=== PATIENT | male | born 1995 | race Caucasian/White ===

== ENCOUNTER 2018-08-04 05:32 | Emergency (ER) | payer MEDICAID ==
[~2018-08-04] VITALS: Ht 182.9 cm; Wt 72.6 kg
--- NOTE | 2018-08-04 05:35 | NUR ---
PATIENT NOT IN THE WAITNG ROOM.
[2018-08-04 06:23] VITALS: BP 134/87
--- NOTE | 2018-08-04 07:09 | NUR ---
REPORT GIVEN TO UMBERTO CONNOLLY FOR CORBY
[2018-08-04] MEDS ORDERED: LIDOCAINE HCL/MPF 1% 30 ML VIAL IJ ONE (07:16)
[2018-08-04] MEDS ORDERED: LIDOCAINE 1%-EPI 1:100,000 20 ML VIAL TP ONE (07:30)
--- NOTE | 2018-08-04 07:41 | NUR ---
VERBAL ORDER: CHANGE LIDOCAINE WITH EPI TO WITHOUT EPI PER DR CAGLE
== END 2018-08-04 07:43 | disposition home or self-care (01) ==
LOC: EDBD → ER 05:37
DX: S50.852A Superficial foreign body of left forearm, initial encounter (principal); Z59.0 Homelessness; W45.8XXA Other foreign body or object entering through skin, initial encounter; Y93.89 Activity, other specified; Y92.89 Other specified places as the place of occurrence of the external cause; Y99.8 Other external cause status
CPT/HCPCS: 73090-TC; A6402; J3490

== ENCOUNTER 2018-09-06 12:23 | Emergency (ER) | payer MEDICAID ==
[~2018-09-06] VITALS: Ht 182.9 cm; Wt 70.3 kg
--- NOTE | 2018-09-06 12:23 | NUR ---
BIB SELF, TOOK HEROIN AND METH, TO ER BED 14, HOOKED TO MONITOR, AWAITING MD LEIVA
--- NOTE | 2018-09-06 12:43 | NUR ---
DR AKINS AT BEDSIDE
--- NOTE | 2018-09-06 13:35 | NUR ---
PROVIDED W LUNCH TRAY, PT TOLERATING PO WELL
--- NOTE | 2018-09-06 13:35 | NUR ---
URINE SAMPLE SENT TO LAB
[2018-09-06 13:39] LABS: APPEARANCE,URINE Clear (CLEAR); BILIRUBIN,URINE Negative (NEGATIVE); BLOOD, URINE Negative Ery/uL (NEGATIVE); COLOR,URINE Yellow (YELLOW); KETONES,URINE Trace (NEGATIVE); LEUKOCYTE ESTERASE ,URINE Trace (NEGATIVE); NITRITE, URINE Negative (NEGATIVE); PH,URINE 6.5 (5.0-8.0); PROTEIN,URINE Negative (NEGATIVE); UGLUCOSE Negative (NEGATIVE)
[2018-09-06 13:42] LABS: BASOPHILS % (AUTO) 0.4 % (0.0-2.0); HEMATOCRIT 39 % (39-51); HEMOGLOBIN 13.4 g/dL (13.5-17.5); LYMPHOCYTES # (AUTO) 2.3 /CMM (0.8-4.8); MEAN CORPUSCULAR HGB CONC 34 g/dl (31.0-36.0); MEAN CORPUSCULAR VOLUME 92 fL (80-96); MONOCYTES # (AUTO) 1.2 /CMM (0.1-1.30); MONOCYTES % (AUTO) 13.5 % (2.0-12.0); NEUTROPHILS % (AUTO) 58.1 % (43.0-81.0); PLATELET COUNT (AUTO) 238 /CMM (150-450); RED BLOOD CELL COUNT(AUTO) 4.23 MIL/uL (4.5-6.0); WHITE BLOOD COUNT (AUTO) 8.7 K/uL (4.3-11.0)
[2018-09-06 13:46] LABS: RBC,URINE NONE SEEN /HPF (0-2)
[2018-09-06 13:47] LABS: BACTERIA,URINE Few /HPF (None Seen); SQUAMOUS EPITHELIAL CELL,UR Few /HPF (None Seen)
[2018-09-06 13:50] LABS: CALCIUM, SERUM 9.1 mg/dL (8.5-10.1); CARBON DIOXIDE 29 mmol/L (21-32); CHLORIDE 101 mmol/L (98-107); CREATININE 0.8 mg/dL (0.6-1.3); GLUCOSE 97 mg/dL (74-106); POTASSIUM 4.2 mmol/L (3.5-5.1); SODIUM SERUM 138 mmol/L (136-145); UREA NITROGEN, BLOOD 17 mg/dL (7-18)
[2018-09-06 13:56] LABS: ALANINE AMINOTRANSFERASE 25 U/L (12-78); ALCOHOL, BLOOD < 3 mg/dL (0-0); ALKALINE PHOSPHATASE 107 U/L (46-116); ASPARTATE AMINOTRANSFERASE 20 U/L (15-37); BILIRUBIN,DIRECT 0.1 mg/dL (0.0-0.2); BILIRUBIN,TOTAL 0.6 mg/dL (0.2-1.0); TOTAL PROTEIN, SERUM 7.8 g/dL (6.4-8.2)
[2018-09-06 13:58] LABS: ACETAMINOPHEN < 2 ug/ml (10-30)
--- NOTE | 2018-09-06 15:03 | NUR ---
PT IN BED COMFORTABLY ASLEEP, NAD, VSS, WILL CONTINUE TO MONITOR
--- NOTE | 2018-09-06 16:35 | NUR ---
PT IN V=BED ASLEEP, VSS. WILL CONTINUE TO MONITOR
--- NOTE | 2018-09-06 18:58 | NUR ---
PT IN BED ASLEEP, VSS, WILL CONTIUE TO MONITOR
--- NOTE | 2018-09-06 21:04 | NUR ---
PT ASLEEP IN BED, HOOKED TO MONITOR, VS STABLE, EASILY AROUSABLE BY VOICE. WILL CONTINUE TO MONITOR
--- NOTE | 2018-09-06 22:07 | NUR ---
PT ASLEEP IN BED, EASILY AROUSABLE BY VOICE, HOOKED TO MONITOR, VSS
--- NOTE | 2018-09-06 23:37 | NUR ---
REPORT GIVEN TO ALOK SHIPMAN FOR CORBY
--- NOTE | 2018-09-07 02:32 | NUR ---
dr. france d/c patient, per md unable to print aci, pt verbalizes and understands d/c instruction, signed instructions in chart, given prescription by md. left in stable condtion, amb with steady gait.
[2018-09-07 02:33] VITALS: BP 131/60
== END 2018-09-07 02:35 | disposition home or self-care (01) ==
LOC: EDBD → ER 12:27
DX: F19.10 Other psychoactive substance abuse, uncomplicated (principal); F15.10 Other stimulant abuse, uncomplicated; Z59.0 Homelessness
CPT/HCPCS: 36415; 80048; 80076; 80305; 80307; 80329; 81001; 85025; 99283; A4606; G0480; 81000-TC

== ENCOUNTER 2018-09-15 20:44 | Inpatient (IN) | payer MEDICAID ==
[~2018-09-15] VITALS: Ht 182.9 cm; Wt 68.2 kg
[2018-09-15 00:50] VITALS: BP 134/66
--- NOTE | 2018-09-15 21:07 | NUR ---
ABSCESS ON BOTH ARMS S/P USING HEROIN X TODAY. ALSO ABSCESS ON RIGHT CALF. C/O PAIN LEVEL 10/10. SKIN INTACT AND NO ACUTE DISTRESS NOTED. HOOKED TO MONITOR. READY FOR EVAL.
--- NOTE | 2018-09-15 21:10 | NUR ---
PT IS HOMELESS. IF NOT ADMITTED, WILL PROVIDE RESOURCES AND HAVE PT SIGN WAIVER.
[2018-09-15] MEDS ORDERED: LIDOCAINE 1%-EPI 1:100,000 20 ML VIAL ONE (21:13)
[2018-09-15] MEDS ORDERED: TDAP [DIPH/PERTUSSIS/TET] 0.5 ML VIAL IM ONE ×2 (21:14→21:30)
[2018-09-15] MEDS ORDERED: ACETAMINOPHEN ES 500 MG TABLET ONE (21:14)
[2018-09-15] MEDS ORDERED: LEVOFLOXACIN 750 MG /D5W 150ML 150 ML IV ONE (21:26)
[2018-09-15] MEDS ORDERED: VANCOMYCIN 1 GM VIAL ONE (21:26)
[2018-09-15] MEDS ORDERED: ACETAMINOPHEN 325 MG TABLET PO ONE (21:30)
[2018-09-15] MEDS ORDERED: VANCOMYCIN 1 GM in IV D5W 250 ML IV ONE (21:30)
[2018-09-15] MEDS ORDERED: IV NS 0.9% 1,000 ML BAG IV ONE (21:30)
[2018-09-15] MEDS ORDERED: LEVOFLOXACIN 750 MG /D5W 150ML PIGGYBACK IV ONE (21:30)
[2018-09-15 21:31] LABS: BASOPHILS # (AUTO) 0.1 /CMM (0.0-0.2); BASOPHILS % (AUTO) 0.5 % (0.0-2.0); EOSINOPHILS % (AUTO) 0.6 % (0.0-6.0); HEMATOCRIT 34 % (39-51); HEMOGLOBIN 11.5 g/dL (13.5-17.5); LYMPHOCYTES # (AUTO) 2.2 /CMM (0.8-4.8); LYMPHOCYTES % (AUTO) 17.2 % (20.0-44.0); MEAN CORPUSCULAR HGB CONC 34 g/dl (31.0-36.0); MEAN CORPUSCULAR VOLUME 91 fL (80-96); MONOCYTES # (AUTO) 1.1 /CMM (0.1-1.30); MONOCYTES % (AUTO) 8.3 % (2.0-12.0); NEUTROPHILS # (AUTO) 9.5 /CMM (1.8-8.9); NEUTROPHILS % (AUTO) 73.4 % (43.0-81.0); PLATELET COUNT (AUTO) 337 /CMM (150-450); RED BLOOD CELL COUNT(AUTO) 3.71 MIL/uL (4.5-6.0); WHITE BLOOD COUNT (AUTO) 12.9 K/uL (4.3-11.0)
[2018-09-15 21:42] LABS: CALCIUM, SERUM 8.9 mg/dL (8.5-10.1); CREATININE 0.8 mg/dL (0.6-1.3); POTASSIUM 3.9 mmol/L (3.5-5.1)
[2018-09-15 21:48] LABS: ALBUMIN 3.1 g/dL (3.4-5.0); BILIRUBIN,DIRECT 0.1 mg/dL (0.0-0.2); BILIRUBIN,TOTAL 0.5 mg/dL (0.2-1.0); TOTAL PROTEIN, SERUM 6.9 g/dL (6.4-8.2)
--- NOTE | 2018-09-15 22:02 | NUR ---
IV ACCESS ESTABLISHED AND FLUIDS INFUSING. PT TOLERATING WELL. WILL CONT TO MONITOR
--- NOTE | 2018-09-15 23:37 | NUR ---
PT SLEEPING COMFORTABLY IN BED. EASILY AROUSES. VSS. WILL CONT TO MONITOR. Addendum: 09/15/18 at 2351 by CJUWONO AROUSES, BUT IMMEDIATELY FALLS BACK ASLEEP
--- NOTE | 2018-09-16 00:21 | NUR ---
calling report to [facility] UMBERTO. Pt is going to [phone].
--- NOTE | 2018-09-16 00:35 | NUR ---
REPORT GIVEN TO UMBERTO BURK - [facility]
[2018-09-16 01:00] VITALS: BP 134/66
--- NOTE | 2018-09-16 01:00 | NUR ---
RECIEVED ROM THE ER ON A GUERNEY. ABLE TO WALK FROM THE GUERNY IN THE HALLWAY TO HIS BED WITH ONE NURSE ASSIST FOR SAFETY. ONE IN THE BED HE SHUT HIS EYES AND WOUND ONLY ANSWER CERTAIN QUESTIONS. HE WOULD MOVE HIS HEAD TO IIDICATE YES NO OR IGNORE THE QUESTION. PHOTOS TAKEN OF WOUND ON THE ARMS NECK LEGS
[2018-09-16] MEDS ORDERED: MAGNESIUM HYDROXIDE 30 ML UDC PO PRN (02:30)
[2018-09-16] MEDS ORDERED: Z GUARD REMEDY 2 OZ OINT TP PRN (02:30)
[2018-09-16] MEDS ORDERED: MAG HYDROX/AL HYDROX/SIMETH 30 ML UDC PO PRN (02:30)
[2018-09-16] MEDS ORDERED: ZOLPIDEM TARTRATE 5 MG TABLET PO PRN (02:30)
[2018-09-16] MEDS: IV NS 0.9% 1,000 ML IV PRN ×2 (03:45→19:11)
--- NOTE | 2018-09-16 05:38 | NUR ---
ENDING NOTES: ADMITTED LAST NIGHT, HE WAS SLEEPY AND SLEPT HEAVU BUT AROUSABLE UNTIL 0500. HE THEN PROCEDED TO GET OUT OF BED W/O CALLING NURSE FOR ASSIST, CALL LIGHT WAS WITHIN HIS REACH THE BED ALARMS WAS ON AND SOUNDED OFF!. ASSISTED HIM TO THE BATHROOM STEADY ON HIS LEGS. PLEASANT AND FRIENDLY AT THIS TIME, ASSISTED BACK TO BED. ARMS ARE RED AND SWOLLEN ELEVATED ON PILLOWS PHOTOS IN THE CHART. MULTIPLE SCABS ON THE LEGS AND ARMS AND RIGHT NECK. ATBS ARE ORDERED.
[2018-09-16] MEDS ORDERED: PIPERACILLIN /TAZOBACTAM 3.375 G in IV D5W 50 ML IV SCH (06:00)
[2018-09-16 06:19] LABS: BASOPHILS % (AUTO) 0.3 % (0.0-2.0); EOSINOPHILS % (AUTO) 0.6 % (0.0-6.0); HEMATOCRIT 38 % (39-51); HEMOGLOBIN 12.6 g/dL (13.5-17.5); LYMPHOCYTES # (AUTO) 1.6 /CMM (0.8-4.8); LYMPHOCYTES % (AUTO) 13.3 % (20.0-44.0); MEAN CORPUSCULAR HGB CONC 34 g/dl (31.0-36.0); MEAN CORPUSCULAR VOLUME 92 fL (80-96); MONOCYTES # (AUTO) 0.8 /CMM (0.1-1.30); MONOCYTES % (AUTO) 6.6 % (2.0-12.0); NEUTROPHILS # (AUTO) 9.7 /CMM (1.8-8.9); NEUTROPHILS % (AUTO) 79.2 % (43.0-81.0); PLATELET COUNT (AUTO) 317 /CMM (150-450); RED BLOOD CELL COUNT(AUTO) 4.07 MIL/uL (4.5-6.0); WHITE BLOOD COUNT (AUTO) 12.2 K/uL (4.3-11.0)
[2018-09-16 06:51] LABS: CALCIUM, SERUM 8.5 mg/dL (8.5-10.1); CREATININE 0.7 mg/dL (0.6-1.3); PHOSPHORUS 4.5 mg/dL (2.5-4.9); POTASSIUM 4.2 mmol/L (3.5-5.1)
--- NOTE | 2018-09-16 07:25 | NUR ---
MS/RN NOTE THE PATIENT ALERT AND ORIENTED X3. IN ROOM AIR AND DENIES SOB. RESPIRATION REGULAR AND UNLABORED. DENIES PAIN. THE PATIENT IN NO APPARENT DISTRESS. LEFT HAND G 22 PATENT AND SALINE LOCKED. BED LOW AND LOCKED. SIDE RAILS UP X3. CALL LIGHT WITHIN REACH. WILL CONTINUE TO MONITOR.
[2018-09-16 08:00] VITALS: BP 127/82
[2018-09-16] MEDS ORDERED: FEE PK DOSING 1 MIN EA MC ONE ×2 (08:21→08:28)
--- NOTE | 2018-09-16 09:45 | NUR ---
MS/RN NOTE STILL WAITING FOR PHARMACY TO DELIVER VANCOMYCIN 1.25 GM. FOLLOW UP CALL IS MADE.
[2018-09-16] MEDS: VANCOMYCIN 1.25 GM in IV D5W 500 ML IV SCH ×3 (10:03→23:21)
--- NOTE | 2018-09-16 10:09 | NUR ---
WOUND CARE CONSULT: PT PRESENTS WITH MULTIPLE AREAS OF REDNESS INCLUDING UPPER AND LOWER EXTREMITIES WITH RAISED RED AREA TO RT ARM AND REDNESS TO RT CALF WITH TENDERNESS, PRESENT ON ADMISSION. PT VERY DROWSY AND REFUSED TO TURN FOR FULL SKIN ASSESSMENT. DR CAGLE IN WITH PT AND HE REQUESTED SURGICAL CONSULT WITH WOUND SURGEON. EXAMINED PT. WILL SEE PRN. RODRIGUEZ IN AGREEMENT WITH PLAN OF CARE. Addendum: 09/16/18 at 1011 by CUONG ALLEN WNDNU Amended: Links added.
[2018-09-16] MEDS: METHOCARBAMOL (750MG) 750 MG TABLET PO SCH ×4 (10:42→20:57)
--- NOTE | 2018-09-16 11:08 | NUR ---
Social service consult requested by TAMERA Ramírez for homelessness and heroin use. Pt. is a 23 year old male who was admitted to [facility] for abscess. YO met with pt. bedside. Pt. is alert and oriented x 4. Initially pt had his eyes closed and was crying. Pt. had a sad affect. SW offered emotional support and asked pt. to talk about what was upsetting him. Pt. then opened his eyes and informed SW that he is in big trouble. Pt. states he is court mandated to attend a drug treatment program and was attending [facility] in [place] for three weeks but was kicked out two weeks ago. Pt. stated, his sister had given him an edible marijuana candy three weeks ago and the staff at [facility] found it in his backpack. Pt. has been on the streets since then and started using again. Pt. sounds defeated and states, " I don't know what I am going to do now, my court date is in the beginning of October." YO informed pt. she will refer him to [facility] and will let him know if they will be able to accommodate him there. Pt's drug of choice is heroin and methamphetamines. Pt. uses a gram of each daily. Pt. appears a bit distraught stating, " I have no family, I am going to go to care home." Pt. states, his backpack in at the [facility] in [place] and he needs to get it. YO faxed referral packet to Thania Jasso at [facility] . YO also called Thania [phone] and left her a voicemail message informing her that YO faxed referral packet.
--- NOTE | 2018-09-16 15:03 | NUR ---
YO left a voicemail message for Italia Claros at [facility] [phone] regarding referral that was faxed this morning.
[2018-09-16 16:00] VITALS: BP 128/78
[2018-09-16] MEDS: LORAZEPAM INJ 2 MG/ML VIAL IV PRN (18:01)
--- NOTE | 2018-09-16 18:50 | NUR ---
MS/RN NOTE THE PATIENT ALERT AND ORIENTED X4. IN ROOM AIR AND SATURATION IS AT 98%. DENIES SOB. RESPIRATION REGULAR AND UNLABORED. DENIES PAIN. THE PATIENT IN NO APPARENT DISTRESS. LEFT HAND G 22 PATENT AND IV FLUID INFUSING PER ORDER. NO S/S INFILTRATION NOTED. BED LOW AND LOCKED. SIDE RAILS UP X3. CALL LIGHT WITHIN REACH. WILL ENDORSE TO PANEL BEATER.
--- NOTE | 2018-09-16 19:00 | NUR ---
MS/RN NOTE RECEIVED PT IN BED SLEEPING BUT EASILY AWOKEN VERBALLY OR BY TOUCH. PT A/O X4. RESPIRATIONS EVEN AND UNLABORED WITH NO S/S OF ACUTE DISTRESS OR SOB. PT DENIES PAIN AT THIS TIME. LEFT HAND G 22 PATENT AND INTACT. NO S/S INFILTRATION NOTED. BED IN LOW AND LOCKED POSITION WITH SIDE RAILS UP X3. CALL LIGHT WITHIN REACH. WILL CONTINUE TO MONITOR.
[2018-09-16 20:11] VITALS: BP 134/74
[2018-09-16] MEDS: LEVOFLOXACIN 750 MG /D5W 150ML 750 MG in PREMIX 1 EA IV SCH (20:34)
[2018-09-16] MEDS: ACETAMINOPHEN 325 MG TABLET PO PRN (20:34)
[2018-09-16] MEDS ORDERED: LEVOFLOXACIN 750 MG /D5W 150ML 750 MG in PREMIX 1 EA IV SCH (21:30)
[2018-09-16 23:09] VITALS: BP 169/88
[2018-09-16] MEDS ORDERED: SILVER NITRATE APPLICATOR 1 EA BOX TP ONE (23:30)
[2018-09-16] MEDS ORDERED: LIDOCAINE 1%-EPI 1:100,000 20 ML VIAL TP ONE (23:30)
[2018-09-17] MEDS: METHOCARBAMOL (750MG) 750 MG TABLET PO SCH ×6 (02:10→22:58)
[2018-09-17 07:05] LABS: CALCIUM, SERUM 8.9 mg/dL (8.5-10.1); CREATININE 0.7 mg/dL (0.6-1.3); POTASSIUM 4.3 mmol/L (3.5-5.1)
--- NOTE | 2018-09-17 07:20 | NUR ---
RN OPENING NOTES PATIENT IN STABLE CONDITION. A/OX3, ABLE TO MAKE NEEDS KNOWN, NOT IN ANY FORM OF DISTRESS, NO SOB, COMPLAINTS OF PAIN 7/10 ON UPPER EXTREMITIES, WILL GIVE PAIN MEDS ORDERED. IV ACCESS INTACT AND PATENT. KEPT PATIENT SAFE AND COMFORTABLE. BED IN LOW/LOCKED POSITION, SIDERAILS UPX2, CALL LIGHT IN REACH. WILL CONTINUE TO MONITOR ACCORDINGLY.
[2018-09-17] MEDS: HYDROCODONE/APAP 5/325MG 1 EACH TABLET PO PRN ×2 (07:32→15:22)
--- NOTE | 2018-09-17 07:45 | NUR ---
MS/RN NOTE PT IN BED SLEEPING BUT EASILY AWOKEN VERBALLY OR BY TOUCH. PT A/O X4 AND ABLE TO MAKE NEEDS KNOWN. RESPIRATIONS EVEN AND UNLABORED WITH NO S/S OF ACUTE DISTRESS OR SOB THROUGHOUT SHIFT. LEFT HAND G 22 PATENT AND INTACT RUNNING NS@100ML/HR. NO S/S INFILTRATION NOTED. BED IN LOW AND LOCKED POSITION WITH SIDE RAILS UP X3. CALL LIGHT WITHIN REACH. WILL ENDORSE TO ONCOMING NURSE FOR CONTINUATION OF CARE.
[2018-09-17 08:00] VITALS: BP_SYST 125; BP_SYST 161; BP_DIAS 54; BP_DIAS 88
--- NOTE | 2018-09-17 08:44 | NUR ---
YO called Italia Claros at [facility] [phone] to follow up on referral that was faxed to her yesterday. Italia informed YO that they did receive the packet and will review it and call YO this afternoon.
[2018-09-17] MEDS: VANCOMYCIN 1.25 GM in IV D5W 500 ML IV SCH ×2 (08:52→16:31)
[2018-09-17] MEDS ORDERED: HYDR-4384 PO (09:12)
[2018-09-17] MEDS ORDERED: METH10TA2 PO (09:12)
--- NOTE | 2018-09-17 10:45 | NUR ---
YO received a call from pt's mother Lilly . Lilly informed YO that she resides in [place] and will be coming to [place] to see the pt. tomorrow. Lilly stated she would like to help the pt. and not have him back on the streets. YO informed Lilly she referred pt. to [facility] and is awaiting a call back this afternoon. YO also informed Lilly about [facility] that accepts pt. with and without insurance and there tends to be no waitlist. YO informed Lilly she will give pt. the Substance Abuse Hotline number so pt. can call himself regarding a program. YO to refer pt. to [facility] as well. YO updated RASHARD Black regarding pt's mother flying in from [place] to assist the pt.
[2018-09-17] MEDS: ACETAMINOPHEN 325 MG TABLET PO PRN (10:52)
--- NOTE | 2018-09-17 10:54 | NUR ---
YO contacted the [facility] in [place]. [place] [phone] and was informed by Jess in intake that they have no bed availability at this time.
[2018-09-17] MEDS: LORAZEPAM INJ 2 MG/ML VIAL IV PRN ×2 (11:36→19:43)
[2018-09-17] MEDS: ONDANSETRON HCL/PF 4 MG/2 ML VIAL IVP PRN ×2 (13:20→21:39)
--- NOTE | 2018-09-17 14:00 | NUR ---
RN NOTES: VENEERS PATIENT REPORTED THAT HE LOST HIS UPPER VENEERS WHILE VOMITING EARLIER. LIZANDRO LOREDO AND PRIMARY NURSE WENT THROUGH THE TRASH BIN AND LOOKED FOR IT. FOUND THE VENEERS AT THE GREEN VOMIT CONTAINER AND WASHED IT, AND GAVE IT TO THE PATIENT. DENTURE CONTAINER PROVIDED AND PLACED THE VENEER INSIDE WITH PATIENT'S NAME LABEL, PLACED IT ON BEDSIDE TRAY. ADDED/NOTED IT ON THE BELONGINGS CHECKLIST.
--- NOTE | 2018-09-17 15:44 | NUR ---
YO met with pt .bedside. Pt. is having projectile vomiting and is not feeling well at all. Per UMBERTO Campbell pt. was given Ativan and Zofran per doctor's orders. SW informed pt. that she did call [facility] and they are reviewing his referral packet. Pt. was crying and SW offered pt. emotional support and informed him that hi hanyther is coming to visit him tomorrow from [place]. YO informed pt's UMBERTO Campbell and RASHARD Black regarding pt's going through withdrawals and is feeling miserable. They will contact Dr. Curtis and follow up with him.
--- NOTE | 2018-09-17 15:58 | NUR ---
SW contacted [facility] and left a voicemail message requesting a call back. -
[2018-09-17 16:00] VITALS: BP 145/70
[2018-09-17] MEDS ORDERED: CLONIDINE HCL 0.1 MG TABLET PO PRN (16:00)
[2018-09-17] MEDS ORDERED: METOCLOPRAMIDE HCL 10 MG/2 ML VIAL IV PRN (16:00)
[2018-09-17] MEDS: LACTOBACILLUS RHAMNOSUS GG 1 EACH CAP.SPRINK PO SCH (18:09)
--- NOTE | 2018-09-17 19:05 | NUR ---
MS/RN NOTE PT IN BED AWAKE AND RESTING. PT A/O X4 AND ABLE TO MAKE NEEDS KNOWN. RESPIRATIONS EVEN AND UNLABORED WITH NO S/S OF ACUTE DISTRESS OR SOB NOTED. LEFT HAND G 22 PATENT AND INTACT RUNNING NS@100ML/HR. NO S/S INFILTRATION NOTED. BED IN LOW AND LOCKED POSITION WITH SIDE RAILS UP X2. CALL LIGHT WITHIN REACH. WILL CONTINUE TO MONITOR.
--- NOTE | 2018-09-17 19:36 | NUR ---
RN CLOSING NOTES PATIENT IN STABLE CONDITION. ALL NEEDS ATTENDED AND PROVIDED. ALL DUE MEDICATIONS ADMINISTERED ORDERED. KEPT PATIENT SAFE AND COMFORTABLE. BED IN LOW/LOCKED POSITON, SIDERAIL UP X 2, CALL LIGHT IN REACH. ENDORSED TO NIGHT RN FOR CORBY.
[2018-09-17 20:00] VITALS: BP 142/63
[2018-09-17] MEDS: LEVOFLOXACIN 750 MG /D5W 150ML 750 MG in PREMIX 1 EA IV SCH (21:10)
[2018-09-17] MEDS: IV NS 0.9% 1,000 ML IV PRN (21:14)
[2018-09-18] MEDS: VANCOMYCIN 1.25 GM in IV D5W 500 ML IV SCH ×2 (00:20→08:07)
[2018-09-18] MEDS: METHOCARBAMOL (750MG) 750 MG TABLET PO SCH ×3 (02:55→09:20)
[2018-09-18 08:00] VITALS: BP 124/70
[2018-09-18] MEDS: LORAZEPAM INJ 2 MG/ML VIAL IV PRN (08:08)
[2018-09-18] MEDS: LACTOBACILLUS RHAMNOSUS GG 1 EACH CAP.SPRINK PO SCH (08:10)
[2018-09-18] MEDS: ACETAMINOPHEN 325 MG TABLET PO PRN (08:10)
[2018-09-18 08:15] LABS: CALCIUM, SERUM 8.9 mg/dL (8.5-10.1); CREATININE 0.8 mg/dL (0.6-1.3); POTASSIUM 3.8 mmol/L (3.5-5.1)
--- NOTE | 2018-09-18 09:45 | NUR ---
RN NOTES PATIENT WAS PACING AROUND AND STARTED TO PUT ON HIS CLOTHES AND STATED THAT HE WANTS TO LEAVE THE HOSPITAL. TALKED TO PATIENT IN A CALM MANNER AND EXPLAINED TO PATIENT RISK OF LEAVING AGAINST MEDICAL ADVICES. PATIENT VERBALIZED UNDERSTANDING. REMOVED IV ACCESS, APPLIED PRESSURE, NO BLEEDING NO COMPLICATIONS. REMOVED NAME BAND.
--- NOTE | 2018-09-18 09:50 | NUR ---
RN NOTES PER PATIENT, "OK IM GONNA STAY". WENT BACK TO BED AND RESTED.
--- NOTE | 2018-09-18 10:00 | NUR ---
DR LOMAX AT BEDSIDE DOING INCISION AND DRAINAGE ON RIGHT ARM.
--- NOTE | 2018-09-18 10:30 | NUR ---
WOUND CULTURE SPECIMEN COLLECTED AND CALLED LAB FOR BOTTLE BOOTH ATTENDANT
[2018-09-18 10:34] VITALS: BP 161/80
[2018-09-18] MEDS: HYDROCODONE/APAP 5/325MG 1 EACH TABLET PO PRN (10:35)
--- NOTE | 2018-09-18 10:55 | NUR ---
RN NOTES PATIENT WANTED TO GO FOR A FRESH AIR OUTSIDE THE HOSPITAL. PATIENT IS GETTING HOSTILE/CURSING. AGRICULTURAL EXTENSION OFFICER MADE AWARE. LIZANDRO GUTIERREZ AND MILAN ACCOMPANIED PATIENT TO GET FRESH AIR OUTSIDE THE HOSPITAL.
--- NOTE | 2018-09-18 11:05 | NUR ---
RN NOTES LIZANDRO GUTIERREZ REPORTED THAT PATIENT WENT AWOL RIDING HIS SKATEBOARD. STOCKROOM SUPERVISOR AND TWISTING MACHINE OPERATOR MADE AWARE. WILL NOTIFY MD. PATIENT BELONGINGS STILL IN THE ROOM. LIZANDRO CORDERO PUT ALL THE BELONGINGS ON PATIENT'S BELONGINGS BAG AND LEFT IT IN THE NURSING STATION..
--- NOTE | 2018-09-18 13:44 | NUR ---
SW was informed by RASHARD Black and pt's UMBERTO Campbell that pt. eloped from the facility. YO contacted pt's mother Lilly (who travelled from [place] to [place] to come visit the pt) that pt. eloped from the facility this morning. SW informed her that pt. left all his belongings here at the hospital. Lilly informed SW that she is in an uber from [facility] and will be coming to [facility] to pick up and delivery driver pt's belongings. YO notified biomedical repair technician Diane regarding pt's mother coming to the hospital in a few hours to pick up and delivery driver belongings.
--- NOTE | 2018-09-18 14:30 | NUR ---
RN NOTES PATIENT MOTHER CAME AND PICKED UP THE BELONGINGS, FORM SIGNED.
== END 2018-09-18 11:10 | disposition left against medical advice (07) | DRG 364 ==
LOC: EDBD → ER 20:44 → MED 09-16 00:21
PROVIDERS: ADMIT Internal Medicine; ATTEND Internal Medicine
PROC: 0KB90ZZ Excision of Right Lower Arm and Wrist Muscle, Open Approach (ICD-10-PCS; principal; 2018-09-18)
DX: L02.413 Cutaneous abscess of right upper limb (principal); G92 Toxic encephalopathy; Q61.3 Polycystic kidney, unspecified; Z88.0 Allergy status to penicillin; F11.229 Opioid dependence with intoxication, unspecified; F17.210 Nicotine dependence, cigarettes, uncomplicated; Z59.0 Homelessness; L03.114 Cellulitis of left upper limb; L03.113 Cellulitis of right upper limb
CPT/HCPCS: 36415; 80048-TC; 80061-TC; 80076-TC; 80202-TC; 83605-TC; 83735-TC; 84100-TC; 85025-TC; 85730-TC; 87040-TC; 87070-TC; 87081-TC; 90715; A4216; A6402; A6403; A6407; G0378; G0480; J1956; J2060; J2405; J2543; J3370; J3490; J7030; J7060

== ENCOUNTER 2018-09-20 21:41 | Inpatient (IN) | payer MEDICAID ==
[~2018-09-20] VITALS: Ht 182.9 cm; Wt 66.2 kg
[~2018-09-20 21:41] MED LIST: HYDR-4384 PO; METH10TA2 PO
[2018-09-20] MEDS ORDERED: SULFAMETH/TRIMETH 800/160 MG 1 UDTAB TABLET PO ONE ×2 (23:00→23:14)
[2018-09-20] MEDS ORDERED: LIDOCAINE 1%-EPI 1:100,000 20 ML VIAL TP ONE (23:00)
[2018-09-20] MEDS ORDERED: CEPHALEXIN MONOHYDRATE 500 MG CAPSULE PO ONE ×2 (23:00→23:13)
[2018-09-21] MEDS ORDERED: KETOROLAC TROMETHAMINE INJ 60 MG/2 ML VIAL IM ONE
[2018-09-21 00:05] LABS: BASOPHILS # (AUTO) 0.1 /CMM (0.0-0.2); BASOPHILS % (AUTO) 0.8 % (0.0-2.0); EOSINOPHILS % (AUTO) 0.7 % (0.0-6.0); HEMATOCRIT 42 % (39-51); HEMOGLOBIN 14.5 g/dL (13.5-17.5); LYMPHOCYTES # (AUTO) 1.9 /CMM (0.8-4.8); LYMPHOCYTES % (AUTO) 17.1 % (20.0-44.0); MEAN CORPUSCULAR HGB CONC 35 g/dl (31.0-36.0); MEAN CORPUSCULAR VOLUME 90 fL (80-96); MONOCYTES # (AUTO) 0.6 /CMM (0.1-1.30); MONOCYTES % (AUTO) 5.5 % (2.0-12.0); NEUTROPHILS # (AUTO) 8.3 /CMM (1.8-8.9); NEUTROPHILS % (AUTO) 75.9 % (43.0-81.0); PLATELET COUNT (AUTO) 418 /CMM (150-450); RED BLOOD CELL COUNT(AUTO) 4.68 MIL/uL (4.5-6.0); WHITE BLOOD COUNT (AUTO) 10.9 K/uL (4.3-11.0)
[2018-09-21 00:13] LABS: CALCIUM, SERUM 8.8 mg/dL (8.5-10.1); CREATININE 0.7 mg/dL (0.6-1.3)
[2018-09-21] MEDS ORDERED: KETOROLAC TROMETHAMINE INJ 30 MG/ML VIAL ONE (00:38)
[2018-09-21 02:20] VITALS: BP 154/74
[2018-09-21 02:25] VITALS: BP 154/74
[2018-09-21] MEDS ORDERED: ACETAMINOPHEN 325 MG TABLET PO PRN (03:00)
[2018-09-21] MEDS ORDERED: Z GUARD REMEDY 2 OZ OINT TP PRN (03:00)
[2018-09-21] MEDS ORDERED: MAG HYDROX/AL HYDROX/SIMETH 30 ML UDC PO PRN (03:00)
[2018-09-21] MEDS ORDERED: HYDROCODONE/APAP 5/325MG 1 EACH TABLET PO PRN (03:00)
[2018-09-21] MEDS ORDERED: ONDANSETRON HCL/PF 4 MG/2 ML VIAL IVP PRN (03:00)
[2018-09-21] MEDS ORDERED: MAGNESIUM HYDROXIDE 30 ML UDC PO PRN (03:00)
[2018-09-21] MEDS: IV NS 0.9% 1,000 ML IV PRN ×2 (03:15→21:42)
[2018-09-21 08:00] VITALS: BP_SYST 118; BP_DIAS 45; BP_DIAS 48
[2018-09-21] MEDS: PANTOPRAZOLE 40 MG TABLET.DR PO SCH (13:40)
[2018-09-21 16:00] VITALS: BP 132/66
[2018-09-21] MEDS ORDERED: SULFAMETH/TRIMETH 800/160 MG 1 UDTAB TABLET PO ONE (23:00)
[2018-09-22] MEDS: PANTOPRAZOLE 40 MG TABLET.DR PO SCH (06:22)
[2018-09-22] MEDS ORDERED: SULFAMETH/TRIMETH 800/160 MG 1 UDTAB TABLET PO SCH (09:00)
== END 2018-09-22 12:30 | disposition home or self-care (01) | DRG 383 ==
LOC: ER 21:43 → EDBD 21:43 → MED 09-21 00:57
PROVIDERS: ADMIT Internal Medicine; ATTEND Internal Medicine
DX: L02.414 Cutaneous abscess of left upper limb (principal); F11.20 Opioid dependence, uncomplicated; L03.113 Cellulitis of right upper limb; L02.413 Cutaneous abscess of right upper limb; L03.114 Cellulitis of left upper limb; Z72.0 Tobacco use
CPT/HCPCS: 36415; 80048-TC; 85025-TC; 87081-TC; A6253; A6402; A6407; G0378; J1885; J7030

== ENCOUNTER 2018-10-28 12:33 | Emergency (ER) | payer MEDICAID ==
[~2018-10-28] VITALS: Ht 182.9 cm; Wt 68.0 kg
[2018-10-28] MEDS ORDERED: METHADONE HCL (40MG) 40 MG TABLET.SOL PO ONE (13:30)
[2018-10-28 14:12] VITALS: BP 125/74
--- NOTE | 2018-10-28 14:16 | NUR ---
patient left awol after talking to social service. refused to sign discharge paper. made aware.
--- NOTE | 2018-10-28 14:33 | NUR ---
Social service consult requested by ER Charge Nurse. Pt. is a 23 year old male admitted to the [facility] ER for withdrawal symptoms from heroin. SW met with Pt. Pt. was standing and pacing around, unable to remain still. Pt. appears agitated and hyperactive. Pt. is clean shaven and dressed appropriately. Pt. is alert and oriented x 3. Pt. states that he was kicked out of [facility] a couple of days ago due to rumors of non-compliance. Pt. states that he does not have a support system, and the emergency contact listed on his face sheet is no longer accurate. Pt. states that he came to the ER for methadone because he cannot get to the methadone clinics he frequents. Pt. is upset because he is not able to receive methadone at this time. Pt. declined a TAP card for transportation. Pt. denies suicidal ideation at this time. Pt. refused any referrals to substance treatment programs and homeless service providers. Pt. refused to sign Homeless Waiver. Pt. walked out and left the ER mid-assessment. SW is available if needed.
== END 2018-10-28 14:16 | disposition left against medical advice (07) ==
LOC: ER 12:33
DX: F11.20 Opioid dependence, uncomplicated (principal)
CPT/HCPCS: Z7502